=== PATIENT | female | born 1960 ===

== ENCOUNTER 2022-02-15 11:32 | Outpatient (CLI) | payer OTHER ==
--- NOTE | 2022-02-15 15:03 | XRay Report ---
LUMBOSACRAL SPINE 3 VIEWS INDICATION: BACK PAIN. COMPARISON: None. IMPRESSION: Normal alignment. 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 The remaining levels are within normal limits. No acute osseous or soft tissue abnor mality. Signer Name: Jorge Culver Jr, MD Signed: 02/15/2022 2:59 PM Workstation Name: [id number]
--- NOTE | 2022-02-15 15:09 | XRay Report ---
Cervical spine 3 views Indication: BACK PAIN Findings: There is no fracture, subluxation, or other acute radiographic abnormality of the cervical spine. There is discogenic degenerative change at C4-5, C5-6, and C6-7 there is disc space narrowing with an terior osteophyte formation and small posterior osteophytes at these levels. There is reversal the no rmal cervical lordosis. Prevertebral soft tissues are unremarkable. Signer Name: Leonid Doe MD Signed: 02/15/2022 3:05 PM Workstation Name: [id number]
== END 2022-02-15 11:33 | disposition home or self-care (01) ==
LOC: XRAY 11:32
PROVIDERS: ATTEND Internal Medicine
DX: M50.323 Other cervical disc degeneration at C6-C7 level (principal); M50.322 Other cervical disc degeneration at C5-C6 level; M50.321 Other cervical disc degeneration at C4-C5 level; M25.78 Osteophyte, vertebrae; M47.817 Spondylosis without myelopathy or radiculopathy, lumbosacral region; M51.37 Other intervertebral disc degeneration, lumbosacral region
CPT/HCPCS: 72040; 72100